=== PATIENT | male | born 1995 | race African-American/Black ===

== ENCOUNTER 2018-08-19 13:34 | Emergency (ER) | payer MEDICAID, OTHER ==
--- NOTE | 2018-08-19 15:39 | RADIOLOGY REPORT (SQ) ---
EXAM DESCRIPTION: KNEE LEFT 4 VIEW COMPLETED DATE/TIME: 08/19/2018 3:29 pm REASON FOR STUDY: pain x2 days COMPARISON: None. NUMBER OF VIEWS: Four views. TECHNIQUE: AP, lateral, and both oblique radiographic images acquired of the left knee. LIMITATIONS: None. FINDINGS: MINERALIZATION: Normal. BONES: No acute fracture or dislocation. No worrisome bone lesions. JOINT: There appears to be a small joint effusion. SOFT TISSUES: No soft tissue swelling. No radio-opaque foreign body. OTHER: No other significant finding. IMPRESSION: Small joint effusion. No acute osseous abnormality. TECHNICAL DOCUMENTATION: JOB ID: [id number] [employer]- All Rights Reserved Reading location - IP/workstation name: [email or web address]
--- NOTE | 2018-08-19 15:59 | ER Document Report ---
HPI - HPI Time Seen by Provider: 08/19/18 14:41 Pain Level: 2 Notes: Patient is a 22-year-old male presented to the emergency department chief complaint of left knee pain. Patient reports that he was working on a ladder when he bumped his knee against a ladder suddenly. He denies any fall or other injury. - CONSTITUTIONAL Constitutional: DENIES: Fever, Chills - MUSCULOSKELETAL Musculoskeletal: REPORTS: Extremity pain - Left knee pain Past Medical History - General Information source: Patient - Social History Smoking Status: Never Smoker Frequency of alcohol use: None Drug Abuse: None Family History: Reviewed & Not Pertinent Patient has suicidal ideation: No Patient has homicidal ideation: No - Medical History Medical History: Negative Renal/ Medical History: Denies: Hx Peritoneal Dialysis Surgical Hx: Negative - Immunizations Immunizations up to date: Yes Vertical Provider Document - CONSTITUTIONAL Notes: PHYSICAL EXAMINATION: GENERAL: Well-appearing, well-nourished and in no acute distress. HEAD: Atraumatic, normocephalic. EYES: Pupils equal round extraocular movements intact, conjunctiva are normal. ENT: Nares patent NECK: Normal range of motion LUNGS: No respiratory distress Musculoskeletal: Normal range of motion, swelling noted to left knee, full range of motion, normal popliteal and dorsalis pedis pulses. NEUROLOGICAL: Normal speech, normal gait. PSYCH: Normal mood, normal affect. SKIN: Warm, Dry, normal turgor, no rashes or lesions noted. - INFECTION CONTROL TRAVEL OUTSIDE OF THE [place] IN LAST 30 DAYS: No Course - Re-evaluation Re-evalutation: X-ray shows small joint effusion to the left knee but no fracture dislocation. Patient will be placed in Mason wrap and treated conservatively for this injury. All findings were discussed with patient, patient verbalizes understanding and agreement with plan. - Vital Signs Vital signs: Temp Pulse Resp BP Pulse Ox 98.2 F 73 16 141/67 H 97 08/19/18 13:41 08/19/18 13:41 08/19/18 13:41 08/19/18 13:41 08/19/18 13:41 Procedures - Immobilization Left knee Pre-Proc Neuro Vasc Exam: Normal Immobilizer type: Mason wrap Performed by: PCT Post-Proc Neuro Vasc Exam: Normal Alignment checked and good: Yes Discharge - Discharge Clinical Impression: Effusion of knee joint, left Condition: Stable Disposition: HOME, SELF-CARE Additional Instructions: Knee Effusion You have a fluid collection in the knee joint, called an effusion. This fluid build up can occur from irritation of the synovial membrane lining the knee joint or from a more serious injury to the knee. Irritation of the membrane can occur from excessive, repetitive knee activitiy, like kneeling or squatting for extended periods or even just excessive walking, jogging, or skiing. Effusions also can occur with infections in the joint and with some arthritic conditions, especially gout. Fluid collections in these situations are usually yellow in color and either clear or cloudy in appearance. Significant injury to the knee can result in fluid collection which is partly or entirely blood and this condition is known as a hemarthrosis of the knee joint. If the fluid collection is not too large and/or painful, it can be managed conservatively with rest, ice packs, and anti-inflammatory and pain medications as needed. If the fluid collection is large and very painful, the knee joint can be drained (aspirated) by a relatively minor procedure of inserting a needle in the joint and removing some or all of the fluid present. If your knee was aspirated, you should rest it as much as possible for a few days, keep a pressure dressing around the knee and apply ice packs for at least 48 - 72 hours. If there are signs of developing infection such as heat and redness of the knee, fever, etc. you should return immediately for a recheck. As discussed please take 600 mg of ibuprofen every 6 hours. Ice and elevate as discussed. Follow-up with orthopedics if not improving over the next 3 to 5 days. Return to the emergency department for an the above warning signs. Forms: Return to Work Referrals: GENE LION MD [ACTIVE STAFF] - Follow up as needed
[2018-08-19 16:00] VITALS: BP 153/58
== END 2018-08-19 16:00 | disposition home or self-care (01) ==
LOC: ER 13:34
DX: M25.562 Pain in left knee (principal); M25.462 Effusion, left knee; W22.09XA Striking against other stationary object, initial encounter; Y99.0 Civilian activity done for income or pay
CPT/HCPCS: 99283